=== PATIENT | female | born 1990 | race Caucasian/White ===

== ENCOUNTER 2020-03-26 20:11 | Inpatient (IN) | payer OTHER ==
[~2020-03-26] VITALS: Ht 165.1 cm; Wt 73.0 kg
[2020-03-26] MEDS ORDERED: PRENATAL PO (20:34)
[2020-03-26] MEDS ORDERED: OMEG1CAP6 PO (20:34)
--- NOTE | 2020-03-26 20:38 | NUR ---
TASK RN: PT REPORTS RECENT UTI AND FINISHING ABX MONDAY. PT STATES THAT TODAY SHE HAD BILATERAL BACK PAIN/FLANK PAIN, BURNING WITH URINATION, STATES "IT FEELS LIKE MY MUSCLE IS JUST IN A HUGE KNOT." DENIES NAUSEA OR VOMITTING. STATES SHES HAD A FEVER AT 106 AT 1400, PT TOOK COOL SHOWER AND TYLENOL 1000MG @ 1330 AND DECREASED FEVER. PT RESTING ON GURNEY, LABS DRAWN AND SENT. PT PLACED ON SPO2/BP/ECG MONITORING. WCTM. PRIMARY RN, ALPHONSE DURAN.
[2020-03-26] MEDS ORDERED: KETOROLAC 30 MG/1 ML ONE (20:45)
[2020-03-26] MEDS ORDERED: ACETAMINOPHEN 325 MG TABLET ONE (20:45)
--- NOTE | 2020-03-26 20:51 | NUR ---
Pt bedside report from Tara dukes. This rn assumed care of pt. Pt medicated per mar and ua labeled, as well as cultures and rainbow lab draw.
[2020-03-26] MEDS ORDERED: SODIUM CHLORIDE 0.9% 1,000ML IVBOLUS ONE ×2 (21:00→22:00)
[2020-03-26] MEDS ORDERED: ACETAMINOPHEN 325 MG TABLET PO ONE (21:00)
[2020-03-26] MEDS ORDERED: KETOROLAC 30 MG/1 ML IVPush ONE (21:00)
[2020-03-26 21:10] LABS: BASOPHILS # (AUTO) 0.03 x10^3/uL (0-0.1); BASOPHILS % (AUTO) 0 % (0-1); EOSINOPHILS % (AUTO) 0 % (1-7); LYMPHOCYTES # (AUTO) 1.06 x10^3/uL (1-3.4); LYMPHOCYTES % (AUTO) 9 % (22-44); MD NO; MEAN CORPUSCULAR HEMOGLOBIN 29.9 pg (27.0-34.8); MEAN CORPUSCULAR HGB CONC 33.7 g/dL (32.4-35.8); MEAN CORPUSCULAR VOLUME 88.7 fL (80-100); MEAN PLATELET VOLUME 7.4 fL (7.4-10.4); MONOCYTES # (AUTO) 0.71 x10^3/uL (0.2-0.8); MONOCYTES % (AUTO) 6 % (2-9); NEUTROPHILS # (AUTO) 10.78 x10^3/uL (1.8-6.8); NEUTROPHILS % (AUTO) 86 % (42-75); PLATELET COUNT 250 x10^3/uL (130-400); RED BLOOD COUNT 4.62 x10^6/uL (3.82-5.3); RED CELL DISTRIBUTION WIDTH 12.5 % (9.6-15.2)
[2020-03-26 21:23] LABS: ALBUMIN 4.2 g/dL (3.4-5.0); ANION GAP 6 mmol/L (5-15); CALCIUM 9.8 mg/dL (8.5-10.1); CHLORIDE 105 mmol/L (98-107); CREATININE 1.13 mg/dL (0.55-1.02)
[2020-03-26 21:26] LABS: MICROSCOPIC AUTO
--- NOTE | 2020-03-26 21:47 | NUR ---
Pt states normal bp is 90/60. Pt current bp is agreeable to that. States has a sexton and has fully body chills and aches, but otherwise no immediate needs.
--- NOTE | 2020-03-26 21:53 | NUR ---
2nd L ns bolus hung via ERP verbal order. ERMD at bedside for further evaluation.
[2020-03-26] MEDS ORDERED: CEFTRIAXONE PMX 1GM/50ML 50 ML IV ONE (22:00)
[2020-03-26] MEDS ORDERED: CEFTRIAXONE PMX 1GM/50ML 50 ML ONE (22:02)
--- NOTE | 2020-03-26 22:35 | NUR ---
Pt hr coming down and afebrile at this time. States still has a CAMARGO. Awaiting ct results.
--- NOTE | 2020-03-26 22:48 | NUR ---
Pt report to Vida dukes.
--- NOTE | 2020-03-26 23:25 | NUR ---
PT INFORMED ON INTENDED POC, AGREED UPON PLAN. PT STATES SHE FORGOT HER BREAST PUMP AT HOME, ONE HAS BEEN REQUESTED FROM .
[2020-03-27] MEDS ORDERED: DOCUSATE 100 MG CAPSULE PO PRN (00:30)
[2020-03-27] MEDS ORDERED: POTASSIUM CHLORIDE 20 MEQ TAB.ER.PRT PO ONE (00:30)
[2020-03-27] MEDS ORDERED: ONDANSETRON 2MG/ML, 2ML IVPush PRN (00:30)
[2020-03-27] MEDS ORDERED: POLYETHYLENE GLYCOL 17 GM PACKET PO PRN (00:30)
[2020-03-27] MEDS ORDERED: hydrALAzine 20 MG/ML, 1ML IVPush PRN (00:30)
[2020-03-27] MEDS ORDERED: morphine SULFATE 10 MG/ML, 1ML IVPush PRN (00:30)
[2020-03-27] MEDS ORDERED: ONDANSETRON ODT 4 MG PO PRN (00:30)
[2020-03-27] MEDS ORDERED: OXYcodone IR 5MG TABLET PO PRN (00:30)
[2020-03-27] MEDS ORDERED: BISACODYL 10 MG SUPP PR PRN (00:30)
[2020-03-27 00:50] VITALS: BP 100/65
[2020-03-27 01:00] LABS: FREE T4 (FREE THYROXINE) 1.18 ng/dL (0.76-1.46)
[2020-03-27] MEDS: SODIUM CHLORIDE 0.9% 1,000 ML IV SCH ×3 (01:18→22:28)
[2020-03-27] MEDS: PIPERACILLIN/TAZO/PMX 3.375GM 50 ML IV SCH ×4 (01:23→18:34)
[2020-03-27] MEDS ORDERED: magnesium PO (02:48)
[2020-03-27] MEDS ORDERED: CALC-112 PO (02:49)
[2020-03-27] MEDS: ACETAMINOPHEN 325 MG TABLET PO PRN ×2 (04:41→11:29)
[2020-03-27 07:12] VITALS: BP 100/65
[2020-03-27] MEDS: KETOROLAC 30 MG/1 ML IVPush PRN ×2 (08:00→13:26)
[2020-03-27] MEDS: OMEGA-3/FISH OIL CAPSULE PO SCH (08:00)
[2020-03-27] MEDS: PRENATAL VIT/IRON/FA 1 EACH TABLET PO SCH (08:00)
[2020-03-27 09:05] LABS: ANION GAP 5 mmol/L (5-15); CALCIUM 8.3 mg/dL (8.5-10.1); CHLORIDE 112 mmol/L (98-107)
[2020-03-27] MEDS: TAMSULOSIN 0.4 MG CAP.ER.24H PO SCH (12:30)
[2020-03-27 13:11] VITALS: BP 106/70
[2020-03-27] MEDS ORDERED: ACETAMINOPHEN 325 MG TABLET ONE (13:24)
[2020-03-27] MEDS: ACETAMINOPHEN 500 MG TABLET PO PRN ×2 (13:26→18:37)
[2020-03-27 22:12] VITALS: BP 95/62
[2020-03-28] MEDS: PIPERACILLIN/TAZO/PMX 3.375GM 50 ML IV SCH ×4 (00:26→18:07)
[2020-03-28 00:38] VITALS: BP 101/72
[2020-03-28] MEDS: ACETAMINOPHEN 500 MG TABLET PO PRN ×2 (02:25→14:56)
[2020-03-28 05:32] LABS: BASOPHILS # (AUTO) 0.01 x10^3/uL (0-0.1); BASOPHILS % (AUTO) 0 % (0-1); EOSINOPHILS # (AUTO) 0.18 x10^3/uL (0-0.4); EOSINOPHILS % (AUTO) 2 % (1-7); LYMPHOCYTES # (AUTO) 1.09 x10^3/uL (1-3.4); LYMPHOCYTES % (AUTO) 10 % (22-44); MD NO; MEAN CORPUSCULAR HEMOGLOBIN 29.9 pg (27.0-34.8); MEAN CORPUSCULAR HGB CONC 33.2 g/dL (32.4-35.8); MEAN CORPUSCULAR VOLUME 90.1 fL (80-100); MEAN PLATELET VOLUME 7.4 fL (7.4-10.4); MONOCYTES # (AUTO) 1.24 x10^3/uL (0.2-0.8); MONOCYTES % (AUTO) 11 % (2-9); NEUTROPHILS # (AUTO) 8.65 x10^3/uL (1.8-6.8); NEUTROPHILS % (AUTO) 77 % (42-75); PLATELET COUNT 188 x10^3/uL (130-400); RED BLOOD COUNT 3.58 x10^6/uL (3.82-5.3); RED CELL DISTRIBUTION WIDTH 12.5 % (9.6-15.2)
[2020-03-28 05:35] LABS: ALBUMIN 2.8 g/dL (3.4-5.0); ANION GAP 4 mmol/L (5-15); CALCIUM 8.2 mg/dL (8.5-10.1); CHLORIDE 111 mmol/L (98-107)
[2020-03-28 05:41] LABS: ALANINE AMINOTRANSFERASE 18 U/L (12-78); ALKALINE PHOSPHATASE 45 U/L (45-117); BILIRUBIN,TOTAL 0.5 mg/dL (0.2-1.0); CHOL/HDL RATIO 2.1; CHOLESTEROL, TOTAL 107 mg/dL (140-239); CREATININE 0.74 mg/dL (0.55-1.02); HDL CHOL % 48 % (28-40); HDL CHOLESTEROL (DIRECT) 51 mg/dL (40-60); LDL CHOLESTEROL,CALCULATED 44 mg/dL (54-169); LDL/HDL RATIO 0.9 (0.5-3.0); TOTAL PROTEIN 6.2 g/dL (6.4-8.2); TRIGLYCERIDES 59 mg/dL (50-200); VLDL CHOLESTEROL 12 mg/dL (0-25)
[2020-03-28] MEDS ORDERED: POTASSIUM CHLORIDE 20 MEQ TAB.ER.PRT PO ONE (06:30)
[2020-03-28 07:27] VITALS: BP 101/63
[2020-03-28] MEDS: DOCUSATE 100 MG CAPSULE PO SCH ×2 (08:30→21:00)
[2020-03-28] MEDS: OMEGA-3/FISH OIL CAPSULE PO SCH (08:30)
[2020-03-28] MEDS: PRENATAL VIT/IRON/FA 1 EACH TABLET PO SCH (08:31)
[2020-03-28] MEDS: TAMSULOSIN 0.4 MG CAP.ER.24H PO SCH (08:31)
[2020-03-28] MEDS: SODIUM CHLORIDE 0.9% 1,000 ML IV SCH ×2 (08:31→15:30)
[2020-03-28] MEDS ORDERED: MAGNESIUM SULFATE PMX 2GM/50ML 50 ML IV ONE (10:00)
[2020-03-28 12:32] VITALS: BP 110/75
[2020-03-28 20:01] VITALS: BP 112/73
[2020-03-29] MEDS: PIPERACILLIN/TAZO/PMX 3.375GM 50 ML IV SCH ×2 (00:16→05:35)
[2020-03-29] MEDS: SODIUM CHLORIDE 0.9% 1,000 ML IV SCH ×2 (00:17→07:30)
[2020-03-29 02:29] VITALS: BP 110/68
[2020-03-29 05:05] LABS: BASOPHILS # (AUTO) 0.03 x10^3/uL (0-0.1); BASOPHILS % (AUTO) 0 % (0-1); EOSINOPHILS % (AUTO) 2 % (1-7); LYMPHOCYTES # (AUTO) 1.45 x10^3/uL (1-3.4); LYMPHOCYTES % (AUTO) 18 % (22-44); MD NO; MEAN CORPUSCULAR HEMOGLOBIN 29.8 pg (27.0-34.8); MEAN CORPUSCULAR HGB CONC 33.5 g/dL (32.4-35.8); MEAN CORPUSCULAR VOLUME 89.2 fL (80-100); MEAN PLATELET VOLUME 7.7 fL (7.4-10.4); MONOCYTES # (AUTO) 0.98 x10^3/uL (0.2-0.8); MONOCYTES % (AUTO) 12 % (2-9); NEUTROPHILS # (AUTO) 5.55 x10^3/uL (1.8-6.8); NEUTROPHILS % (AUTO) 68 % (42-75); PLATELET COUNT 187 x10^3/uL (130-400); RED BLOOD COUNT 3.49 x10^6/uL (3.82-5.3); RED CELL DISTRIBUTION WIDTH 12.3 % (9.6-15.2)
[2020-03-29 05:07] LABS: ANION GAP 6 mmol/L (5-15); CALCIUM 8.4 mg/dL (8.5-10.1); CHLORIDE 111 mmol/L (98-107)
[2020-03-29 05:09] LABS: CREATININE 0.63 mg/dL (0.55-1.02)
[2020-03-29 07:49] VITALS: BP 108/69
[2020-03-29] MEDS ORDERED: TAMS-11 PO (08:01)
[2020-03-29] MEDS ORDERED: IBUP-1902 PO (08:01)
[2020-03-29] MEDS ORDERED: SULF1TAB24 PO (08:01)
[2020-03-29] MEDS ORDERED: ACET500T64 PO (08:01)
[2020-03-29] MEDS: PRENATAL VIT/IRON/FA 1 EACH TABLET PO SCH (08:51)
[2020-03-29] MEDS: OMEGA-3/FISH OIL CAPSULE PO SCH (08:51)
[2020-03-29] MEDS: TAMSULOSIN 0.4 MG CAP.ER.24H PO SCH (08:51)
[2020-03-29] MEDS: DOCUSATE 100 MG CAPSULE PO SCH (08:52)
== END 2020-03-29 09:50 | disposition home or self-care (01) | DRG 872 ==
LOC: ED 23:49 → EDIP 03-27 00:26 → 4NW 03-27 00:30 → DCLOUNGE 03-29 09:40
PROVIDERS: ADMIT Internal Medicine; ATTEND Internal Medicine
DX: A41.9 Sepsis, unspecified organism (principal); N10 Acute pyelonephritis; E83.42 Hypomagnesemia; E87.6 Hypokalemia; K59.00 Constipation, unspecified; N20.0 Calculus of kidney; Z87.440 Personal history of urinary (tract) infections
CPT/HCPCS: 36415; 74176; 80048; 80053; 80061; 81001; 82040; 83036; 83605; 83735; 84145; 84439; 84443; 84703; 85025; 87040; 87077; 87086; 87186; G0378; J0696; J1885; J2543; J3475; J7030